=== PATIENT | male | born 1955 | race Caucasian/White ===

== ENCOUNTER 2019-01-24 15:46 | Emergency (ER) | payer BC, OTHER ==
[~2019-01-24 15:46] MED LIST: AMLO10TA7 PO; HYDR25TA PO; ISOS30TA6 PO; METO-391 PO; NITR0.4T SL
[2019-01-24] MEDS ORDERED: LIDOCAINE HCL 1% 20 ML VIAL ONE (15:58)
[2019-01-24] MEDS ORDERED: TETANUS/DIPHTHERIA TOXOID [ADULT] 0.5 ML VIAL IM ONE (15:58)
== END 2019-01-24 17:07 | disposition home or self-care (01) ==
LOC: EDH 15:46
DX: S61.012A Laceration without foreign body of left thumb without damage to nail, initial encounter (principal); W26.0XXA Contact with knife, initial encounter; Y93.89 Activity, other specified; Y92.69 Other specified industrial and construction area as the place of occurrence of the external cause; Y99.8 Other external cause status
CPT/HCPCS: 12002; 73130; 90471; 90714

== ENCOUNTER → 2021-01-04 | Outpatient (CLI) | payer OTHER ==
[~2021-01-04] MED LIST changes: +AMLO-258 PO; -AMLO10TA7 PO; -ISOS30TA6 PO; +ISOS30TA92 PO
== END | disposition home or self-care (01) ==
LOC: SHCH 10:40
PROVIDERS: ATTEND Internal Medicine Cardiovascular Disease
DX: I34.0 Nonrheumatic mitral (valve) insufficiency (principal); I48.0 Paroxysmal atrial fibrillation
CPT/HCPCS: 93306

== ENCOUNTER → 2021-01-10 | Outpatient (CLI) | payer OTHER ==
[~2021-01-10] MED LIST changes: +REGADENOSON 0.4 MG/5 ML PF SYG IVP SCH
== END | disposition home or self-care (01) ==
LOC: SHCH 08:02
PROVIDERS: ATTEND Internal Medicine Cardiovascular Disease
DX: R06.09 Other forms of dyspnea (principal); R07.89 Other chest pain; I48.91 Unspecified atrial fibrillation; R05 Cough
CPT/HCPCS: 78452; 93017; 96374; A9500 ×2; J2785

== ENCOUNTER 2021-01-26 11:17 | Day surgery (SDC) | payer OTHER ==
[2021-01-24 10:57] VITALS: BP 118/78
[2021-01-24 12:28] LABS: BASOPHILS % (AUTO) 0.7 % (0.0-5.0); EOSINOPHILS % (AUTO) 1.2 % (0.0-8.0); HEMATOCRIT 49.4 % (42-54); LYMPHOCYTES % (AUTO) 16.1 % (21.0-51.0); MEAN CORPUSCULAR VOLUME 93.7 fL (79-99); MONOCYTES % (AUTO) 8.8 % (3.0-13.0); NEUTROPHILS % (AUTO) 72.5 % (40.0-77.0); PLATELET COUNT (AUTO) 174 K/uL (130-400); RED BLOOD CELL COUNT(AUTO) 5.27 MIL/uL (4.50-6.20)
[2021-01-24 12:54] LABS: CREATININE 1.1 mg/dL (0.5-1.5); POTASSIUM 4.3 mmol/L (3.5-5.1); THYROID STIMULATING HORMONE 1.31 uIU/mL (0.36-3.74)
[2021-01-24 12:57] LABS: B-TYPE NATRIURETIC PEPTIDE 91 pg/mL (0-100)
[~2021-01-26] VITALS: Ht 185.4 cm; Wt 95.3 kg
[2021-01-26] VITALS (15 sets, daily range): BP systolic 106–141; BP diastolic 64–94
[~2021-01-26 11:17] MED LIST changes: -NITR0.4T SL; -REGADENOSON 0.4 MG/5 ML PF SYG IVP SCH; +RIVA20TA PO
[2021-01-26] MEDS ORDERED: 0.9%NACL 1000ML 1,000 ML IV ONE (12:14)
[2021-01-26] MEDS ORDERED: LIDOCAINE HCL 2% VISCOUS 15 ML UDCUP ONE (12:14)
[2021-01-26] MEDS ORDERED: FENTANYL CITRATE PF 50 MCG/1 ML 2ML VIAL ONE (12:51)
[2021-01-26] MEDS ORDERED: MIDAZOLAM HCL 1 MG/ML 2ML VIAL ONE (12:52)
== END 2021-01-26 14:05 | disposition home or self-care (01) ==
LOC: DAH 11:17
PROVIDERS: ATTEND Internal Medicine Cardiovascular Disease
DX: I48.0 Paroxysmal atrial fibrillation (principal); Z20.822 Contact with and (suspected) exposure to COVID-19; I08.1 Rheumatic disorders of both mitral and tricuspid valves; I10 Essential (primary) hypertension; I87.2 Venous insufficiency (chronic) (peripheral); E66.3 Overweight; Z79.01 Long term (current) use of anticoagulants; Z87.891 Personal history of nicotine dependence; Z79.899 Other long term (current) drug therapy; Z72.89 Other problems related to lifestyle; Z68.27 Body mass index [BMI] 27.0-27.9, adult
CPT/HCPCS: 36415; 80048; 83880; 84443; 85025; 87426; 92960; 93005; 93312; 93313; 93325; 99152; 99153; A4606; J2250; J3010; J7030

== ENCOUNTER 2021-07-11 17:11 | Observation (INO) | payer OTHER ==
[~2021-07-11] VITALS: Ht 188 cm; Wt 95.3 kg
[2021-07-11 18:03] LABS: BASOPHILS % (AUTO) 0.3 % (0.0-5.0); EOSINOPHILS % (AUTO) 0.6 % (0.0-8.0); HEMATOCRIT 47.6 % (42-54); LYMPHOCYTES % (AUTO) 5.7 % (21.0-51.0); MEAN CORPUSCULAR HEMOGLOBIN 30.6 pg (27.0-33.0); MEAN CORPUSCULAR VOLUME 92.8 fL (79-99); MONOCYTES % (AUTO) 5.9 % (3.0-13.0); NEUTROPHILS % (AUTO) 86.8 % (40.0-77.0); PLATELET COUNT (AUTO) 181 K/uL (130-400); RED BLOOD CELL COUNT(AUTO) 5.13 MIL/uL (4.50-6.20); RED CELL DISTRIBUTION WIDTH 12.7 % (11.0-15.5)
[2021-07-11 18:09] LABS: APPEARANCE,URINE Clear (CLEAR); BILIRUBIN,URINE Negative (NEGATIVE); COLOR,URINE Yellow (YELLOW); GLUCOSE, URINE (UA) Negative (NEGATIVE); KETONES,URINE Trace mg/dL (NEGATIVE); LEUKOCYTE ESTERASE ,URINE Small (NEGATIVE); NITRATE,URINE Negative (NEGATIVE); OCCULT BLOOD,URINE Negative (NEGATIVE); PROTEIN,URINE Negative (NEGATIVE)
[2021-07-11 18:13] LABS: CREATININE 0.9 mg/dL (0.5-1.5); POTASSIUM 3.8 mmol/L (3.5-5.1)
[2021-07-11 18:16] LABS: AMPHET/METH SCREEN,URINE NEGATIVE (NEGATIVE); BARBITURATE SCREEN, URINE NEGATIVE (NEGATIVE); BENZODIAZEPINES SCREEN,URINE NEGATIVE (NEGATIVE); CANNABINOID SCREEN,URINE NEGATIVE (NEGATIVE); COCAINE SCREEN,URINE NEGATIVE (NEGATIVE); OPIATE SCREEN,URINE NEGATIVE (NEGATIVE); PHENCYCLIDINE SCREEN,URINE NEGATIVE (NEGATIVE)
[2021-07-11 18:22] LABS: ALBUMIN 3.9 g/dL (3.5-5.0); BILIRUBIN,TOTAL 0.8 mg/dL (0.2-1.0); TOTAL PROTEIN, SERUM 7.8 g/dL (6.0-8.3)
[2021-07-11 18:38] LABS: BACTERIA,URINE Rare /HPF (None Seen)
[2021-07-11 18:39] LABS: SQUAMOUS EPITHELIAL CELL,UR Rare /HPF (0-2)
[2021-07-11] MEDS ORDERED: IOHEXOL 350 MG/ML 100ML INFUS..BTL IV ONE (21:23)
[2021-07-11] MEDS ORDERED: ASPIRIN 325MG TAB PO ONE (22:00)
[2021-07-12] MEDS ORDERED: ACETAMINOPHEN 325 MG TAB PO PRN (09:30)
[2021-07-12] MEDS: 0.9%NACL 1000ML 1,000 ML IV SCH (10:01)
[2021-07-12 10:18] LABS: BASOPHILS % (AUTO) 0.4 % (0.0-5.0); EOSINOPHILS % (AUTO) 1.3 % (0.0-8.0); HEMATOCRIT 46.3 % (42-54); LYMPHOCYTES % (AUTO) 14.5 % (21.0-51.0); MEAN CORPUSCULAR HEMOGLOBIN 30.4 pg (27.0-33.0); MEAN CORPUSCULAR HGB CONC 32.4 g/dL (32.0-36.0); MEAN CORPUSCULAR VOLUME 93.7 fL (79-99); MONOCYTES % (AUTO) 9.6 % (3.0-13.0); NEUTROPHILS % (AUTO) 73.9 % (40.0-77.0); PLATELET COUNT (AUTO) 190 K/uL (130-400); RED BLOOD CELL COUNT(AUTO) 4.94 MIL/uL (4.50-6.20); RED CELL DISTRIBUTION WIDTH 12.9 % (11.0-15.5)
[2021-07-12 10:28] LABS: INFLUENZA TYPE A NEGATIVE FOR TYPE A (NEG); INFLUENZA TYPE B NEGATIVE FOR TYPE B (NEG)
[2021-07-12 10:39] LABS: ALBUMIN 3.7 g/dL (3.5-5.0); CRP QUANTITATIVE 7.4 mg/L (0.00-9.0); MAGNESIUM 2.1 mg/dL (1.80-2.40); THYROID STIMULATING HORMONE 1.98 uIU/mL (0.36-3.74); TOTAL PROTEIN, SERUM 7.5 g/dL (6.0-8.3)
[2021-07-12 11:23] LABS: ERYTHROCYTE SEDIMENTATION RATE 10 MM/HR (0-20)
[2021-07-12 14:05] VITALS: BP 116/54
[2021-07-12 16:00] VITALS: BP 126/65
[2021-07-12] MEDS ORDERED: HYDRALAZINE 20MG/ML VIAL IV PRN (16:30)
[2021-07-12] MEDS ORDERED: PANTOPRAZOLE 40 MG TAB DR PO SCH (17:45)
[2021-07-12 20:19] VITALS: BP 137/65
[2021-07-12] MEDS: RIVAROXABAN 20 MG TABLET PO SCH ×2 (21:00→21:01)
[2021-07-12] MEDS ORDERED: ISOSORBIDE MONO 30MG SR TAB PO SCH (21:00)
[2021-07-12 23:25] VITALS: BP 112/54
[2021-07-13 04:23] VITALS: BP 109/69
[2021-07-13] MEDS: 0.9%NACL 1000ML 1,000 ML IV SCH (05:30)
[2021-07-13 06:41] LABS: BASOPHILS % (AUTO) 0.7 % (0.0-5.0); EOSINOPHILS % (AUTO) 2.3 % (0.0-8.0); HEMATOCRIT 44.3 % (42-54); MEAN CORPUSCULAR HGB CONC 32.3 g/dL (32.0-36.0); MEAN CORPUSCULAR VOLUME 93.1 fL (79-99); MONOCYTES % (AUTO) 10.7 % (3.0-13.0); PLATELET COUNT (AUTO) 175 K/uL (130-400); RED BLOOD CELL COUNT(AUTO) 4.76 MIL/uL (4.50-6.20); RED CELL DISTRIBUTION WIDTH 12.9 % (11.0-15.5)
[2021-07-13 06:50] LABS: POTASSIUM 3.4 mmol/L (3.5-5.1)
[2021-07-13 08:00] VITALS: BP 124/73
[2021-07-13] MEDS ORDERED: PANTOPRAZOLE 40 MG TAB DR PO SCH (09:00)
[2021-07-13] MEDS ORDERED: METOPROLOL SUCCINATE 50 MG TAB.SR.24H PO SCH (11:30)
[2021-07-13 12:00] VITALS: BP 116/62
[2021-07-13] MEDS ORDERED: HYDR12.54 PO (14:44)
[2021-07-13 16:00] VITALS: BP 130/66
[2021-07-13] MEDS ORDERED: AMLODIPINE 5 MG TAB PO SCH (21:00)
[2021-07-14] MEDS ORDERED: METOPROLOL SUCCINATE 50 MG TAB.SR.24H PO SCH (07:30)
[2021-07-14] MEDS ORDERED: PANTOPRAZOLE 40 MG TAB DR PO SCH (07:30)
[2021-07-14] MEDS ORDERED: HYDROCHLOROTHIAZIDE 25 MG TABLET PO SCH (09:00)
== END 2021-07-13 17:08 | disposition home or self-care (01) ==
LOC: EDH 17:11 → EDHIP 07-12 09:16 → 4CH 07-12 13:29
PROVIDERS: ADMIT Internal Medicine; ATTEND Internal Medicine
DX: R55 Syncope and collapse (principal); E78.5 Hyperlipidemia, unspecified; I10 Essential (primary) hypertension; I25.10 Atherosclerotic heart disease of native coronary artery without angina pectoris; I48.0 Paroxysmal atrial fibrillation; I73.9 Peripheral vascular disease, unspecified; M79.89 Other specified soft tissue disorders; Z20.822 Contact with and (suspected) exposure to COVID-19; M79.606 Pain in leg, unspecified; I34.1 Nonrheumatic mitral (valve) prolapse; R61 Generalized hyperhidrosis; M79.642 Pain in left hand; M79.641 Pain in right hand; Z79.01 Long term (current) use of anticoagulants; Z87.891 Personal history of nicotine dependence; Z79.899 Other long term (current) drug therapy
CPT/HCPCS: 36415 ×3; 70450; 70496; 70498; 70551; 80048; 80053 ×2; 80305; 81001; 82550 ×2; 83735 ×2; 84145; 84443; 84484 ×3; 85025 ×3; 85378 ×2; 85651; 86140; 87635; 87804 ×2; 93005 ×2; 93306; 93356; 93970; 96360; 96361 ×2; 99285; C9803; G0378 ×31; J7030 ×2; Q9967

== ENCOUNTER → 2022-01-24 | Outpatient (CLI) | payer OTHER ==
[~2022-01-24] MED LIST changes: -AMLO-258 PO; +HYDR12.54 PO; -HYDR25TA PO; -ISOS30TA92 PO
== END | disposition home or self-care (01) ==
LOC: SHCH 14:06
PROVIDERS: ATTEND Internal Medicine Cardiovascular Disease
DX: I87.2 Venous insufficiency (chronic) (peripheral) (principal)
CPT/HCPCS: 93970

== ENCOUNTER → 2022-07-12 | Outpatient (CLI) | payer OTHER ==
[2022-07-12 11:26] LABS: BASOPHILS % (AUTO) 0.5 % (0.0-5.0); EOSINOPHILS % (AUTO) 1.5 % (0.0-8.0); HEMATOCRIT 47.2 % (42-54); MEAN CORPUSCULAR HEMOGLOBIN 30.8 pg (27.0-33.0); MEAN CORPUSCULAR HGB CONC 32.4 g/dL (32.0-36.0); MEAN CORPUSCULAR VOLUME 95.2 fL (79-99); NEUTROPHILS % (AUTO) 72.5 % (40.0-77.0); PLATELET COUNT (AUTO) 173 K/uL (130-400); RED BLOOD CELL COUNT(AUTO) 4.96 MIL/uL (4.50-6.20); RED CELL DISTRIBUTION WIDTH 13.1 % (11.0-15.5); WHITE BLOOD COUNT (AUTO) 6.2 K/uL (4.8-10.8)
[2022-07-12 11:27] LABS: CREATININE 1.1 mg/dL (0.5-1.5); POTASSIUM 4.5 mmol/L (3.5-5.1)
[2022-07-12 11:47] LABS: INR 0.96 (0.85-1.15); PROTHROMBIN TIME 10.5 SEC (9.6-11.6)
[2022-07-12 11:48] LABS: PARTIAL THROMBOPLASTIN TIME 28.5 SEC (26.3-35.5)
== END | disposition home or self-care (01) ==
LOC: LAB 10:13
PROVIDERS: ATTEND Internal Medicine Cardiovascular Disease
DX: I10 Essential (primary) hypertension (principal); I87.2 Venous insufficiency (chronic) (peripheral); I87.1 Compression of vein; I48.91 Unspecified atrial fibrillation
CPT/HCPCS: 36415; 80048; 85025; 85610; 85730

== ENCOUNTER → 2022-10-12 | Outpatient (CLI) | payer OTHER ==
[2022-10-12 12:15] LABS: BASOPHILS % (AUTO) 0.7 % (0.0-5.0); EOSINOPHILS % (AUTO) 2.8 % (0.0-8.0); HEMATOCRIT 47.6 % (42-54); LYMPHOCYTES % (AUTO) 12.1 % (21.0-51.0); MEAN CORPUSCULAR HEMOGLOBIN 30.4 pg (27.0-33.0); MEAN CORPUSCULAR HGB CONC 32.1 g/dL (32.0-36.0); MEAN CORPUSCULAR VOLUME 94.6 fL (79-99); NEUTROPHILS % (AUTO) 74.9 % (40.0-77.0); PLATELET COUNT (AUTO) 207 K/uL (130-400); RED BLOOD CELL COUNT(AUTO) 5.03 MIL/uL (4.50-6.20); RED CELL DISTRIBUTION WIDTH 13.5 % (11.0-15.5); WHITE BLOOD COUNT (AUTO) 6.1 K/uL (4.8-10.8)
[2022-10-12 12:26] LABS: INR 0.97 (0.85-1.15); PROTHROMBIN TIME 10.6 SEC (9.6-11.6)
[2022-10-12 12:27] LABS: PARTIAL THROMBOPLASTIN TIME 29.1 SEC (26.3-35.5)
[2022-10-12 12:33] LABS: CREATININE 1.2 mg/dL (0.5-1.5); POTASSIUM 4.4 mmol/L (3.5-5.1)
== END | disposition home or self-care (01) ==
LOC: LAB 08:06
PROVIDERS: ATTEND Internal Medicine Cardiovascular Disease
DX: I87.1 Compression of vein (principal); I48.91 Unspecified atrial fibrillation
CPT/HCPCS: 36415; 80048; 85025; 85610; 85730

== ENCOUNTER → 2022-12-14 | Outpatient (CLI) | payer OTHER ==
[2022-12-14 11:58] LABS: BASOPHILS % (AUTO) 0.7 % (0.0-5.0); EOSINOPHILS % (AUTO) 2.8 % (0.0-8.0); HEMATOCRIT 48.1 % (42-54); LYMPHOCYTES % (AUTO) 12.6 % (21.0-51.0); MEAN CORPUSCULAR HEMOGLOBIN 30.4 pg (27.0-33.0); MEAN CORPUSCULAR HGB CONC 31.8 g/dL (32.0-36.0); MEAN CORPUSCULAR VOLUME 95.4 fL (79-99); MONOCYTES % (AUTO) 9.7 % (3.0-13.0); NEUTROPHILS % (AUTO) 73.7 % (40.0-77.0); PLATELET COUNT (AUTO) 198 K/uL (130-400); RED BLOOD CELL COUNT(AUTO) 5.04 MIL/uL (4.50-6.20); RED CELL DISTRIBUTION WIDTH 13.2 % (11.0-15.5); WHITE BLOOD COUNT (AUTO) 5.8 K/uL (4.8-10.8)
== END | disposition home or self-care (01) ==
LOC: LAB 08:06
PROVIDERS: ATTEND Internal Medicine Cardiovascular Disease
DX: I87.1 Compression of vein (principal)
CPT/HCPCS: 36415; 85025

== ENCOUNTER → 2023-06-06 | Outpatient (CLI) | payer OTHER | END | disposition home or self-care (01) | LOC: SHCH 14:10 | PROVIDERS: ATTEND Internal Medicine Cardiovascular Disease | DX: I65.23 Occlusion and stenosis of bilateral carotid arteries (principal); I87.2 Venous insufficiency (chronic) (peripheral); I87.1 Compression of vein; I10 Essential (primary) hypertension; I48.91 Unspecified atrial fibrillation; R55 Syncope and collapse; Z95.820 Peripheral vascular angioplasty status with implants and grafts | CPT/HCPCS: 93880 ==

== ENCOUNTER → 2024-05-01 | Outpatient (CLI) | payer OTHER ==
--- NOTE | 2024-05-01 15:46 | HMCIMG ---
Exam: NONCONTRAST CT BRAIN REASON: HEADACHE. COMPARISON: None. TECHNIQUE: Images are obtained from vertex to the skull base. The exam was performed without IV contrast. FINDINGS: There is normal appearing brain parenchyma. There are no focal mass lesions. There is is no evidence of intracranial hemorrhage or acute stroke. Ventricles and sulci appear normal. Posterior fossa and brainstem structures are unremarkable. Paranasal sinuses and remaining extracranial soft tissues appear normal as well. IMPRESSION: 1. Normal noncontrast CT brain. CT was performed with one or more following dose reduction techniques: automated exposure control, adjustment of the mA and kv according to patient's size, or use of a iterative reconstruction technique.
== END | disposition home or self-care (01) ==
LOC: RAH 14:29
PROVIDERS: ATTEND Internal Medicine Cardiovascular Disease
DX: S09.90XA Unspecified injury of head, initial encounter (principal); R55 Syncope and collapse; X58.XXXA Exposure to other specified factors, initial encounter; Y93.89 Activity, other specified; Y92.89 Other specified places as the place of occurrence of the external cause; Y99.8 Other external cause status
CPT/HCPCS: 70450

== ENCOUNTER → 2024-05-29 | Outpatient (CLI) | payer OTHER | END | disposition home or self-care (01) | LOC: SHCH 13:01 | PROVIDERS: ATTEND Internal Medicine Cardiovascular Disease | DX: R55 Syncope and collapse (principal) | CPT/HCPCS: 93306 ==

== ENCOUNTER → 2024-12-25 | Outpatient (CLI) | payer OTHER ==
[~2024-12-25] MED LIST changes: +GADOTERATE MEGLUMINE 10 MMOL/20 ML VIAL IV ONE
--- NOTE | 2024-12-27 19:59 | HMCIMG ---
EXAM: MR Brain Without and With IV Contrast CLINICAL HISTORY: Syncope and collapse. TECHNIQUE: Multiplanar multi-sequence MRI of the brain. CONTRAST: Yes. COMPARISON: MRI dated 07/11/21. FINDINGS: No abnormal parenchymal signal is present. No evidence of acute cortical infarction, hemorrhage, mass or mass effect. The ventricular system is normal in size, shape, and contour. No hydrocephalus. No abnormal extra-axial fluid collection is present. The marrow signal within the skull base and calvarium is intact. Small mucus retention cyst noted in the left maxillary sinus. Remaining paranasal sinuses and mastoid air cells are clear. Bilateral intraocular lens implants in situ. 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 IMPRESSION: No acute intracranial abnormality or mass. No abnormal postcontrast enhancement. Bilateral intraocular lens implants in situ. New finding. 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 Stable. /[place]
== END | disposition home or self-care (01) ==
LOC: RAH 10:51
PROVIDERS: ATTEND Nurse Practitioner Adult Health
DX: J34.1 Cyst and mucocele of nose and nasal sinus (principal); H57.89 Other specified disorders of eye and adnexa; R55 Syncope and collapse; Z96.89 Presence of other specified functional implants
CPT/HCPCS: 70553; A9575